=== PATIENT | female | born 1965 | race Hispanic/Latino ===

== ENCOUNTER 2019-02-19 00:20 | Emergency (ER) | payer MEDICAID ==
[2019-02-19] MEDS ORDERED: SODIUM CHLORIDE 0.9% 1000ML 1,000 ML IV ONE (01:00)
[2019-02-19] MEDS ORDERED: ONDANSETRON HCL 4 MG/2 ML VIAL ONE (01:00)
[2019-02-19 01:19] LABS: BASOPHILS % (AUTO) 1.1 % (0.0-5.0); EOSINOPHILS % (AUTO) 3.4 % (0.0-8.0); HEMATOCRIT 43.8 % (36-48); LYMPHOCYTES % (AUTO) 49.5 % (21.0-51.0); MEAN CORPUSCULAR HEMOGLOBIN 34.1 pg (27.0-33.0); MEAN CORPUSCULAR HGB CONC 34.6 g/dL (32.0-36.0); MEAN CORPUSCULAR VOLUME 98.7 fL (79-99); MONOCYTES % (AUTO) 7.5 % (3.0-13.0); NEUTROPHILS % (AUTO) 38.5 % (40.0-77.0); NUCLEATED RED BLOOD CELLS 0.1 % (0.0-0.19); PLATELET COUNT (AUTO) 111 K/uL (130-400); RED BLOOD CELL COUNT(AUTO) 4.44 MIL/uL (4.00-5.50); RED CELL DISTRIBUTION WIDTH 13.6 % (11.0-15.5); WHITE BLOOD COUNT (AUTO) 5.7 K/uL (4.8-10.8)
[2019-02-19 01:29] LABS: POTASSIUM 4.1 mmol/L (3.5-5.1)
[2019-02-19 01:33] LABS: ALBUMIN 3.2 g/dL (3.5-5.0); BILIRUBIN,DIRECT 0.2 mg/dL (0.0-0.3); BILIRUBIN,TOTAL 0.9 mg/dL (0.2-1.0); CREATININE 0.6 mg/dL (0.5-1.5); TOTAL PROTEIN, SERUM 8.3 g/dL (6.0-8.3)
[2019-02-19 01:44] LABS: PLATELET MORPHOLOGY COMMENT LARGE PLTS PRESENT
[2019-02-19 02:11] LABS: APPEARANCE,URINE Clear (CLEAR); BILIRUBIN,URINE Negative (NEGATIVE); COLOR,URINE Yellow (YELLOW); GLUCOSE, URINE (UA) Negative (NEGATIVE); KETONES,URINE Negative (NEGATIVE); LEUKOCYTE ESTERASE ,URINE Moderate (NEGATIVE); NITRATE,URINE Negative (NEGATIVE); OCCULT BLOOD,URINE Negative (NEGATIVE); PH,URINE >=9.0 (5.0-8.0); PROTEIN,URINE Negative (NEGATIVE)
[2019-02-19 02:36] LABS: BACTERIA,URINE Moderate /HPF (None Seen); RBC,URINE 0-1 /HPF (0-1); SQUAMOUS EPITHELIAL CELL,UR 0-2 /HPF (0-2); TRICHOMONAS,URINE Few /LPF (None Seen)
[2019-02-19 02:38] LABS: AMPHET/METH SCREEN,URINE NEGATIVE (NEGATIVE); BARBITURATE SCREEN, URINE NEGATIVE (NEGATIVE); BENZODIAZEPINES SCREEN,URINE NEGATIVE (NEGATIVE); CANNABINOID SCREEN,URINE NEGATIVE (NEGATIVE); COCAINE SCREEN,URINE POSITIVE (NEGATIVE); OPIATE SCREEN,URINE NEGATIVE (NEGATIVE); PHENCYCLIDINE SCREEN,URINE NEGATIVE (NEGATIVE)
[2019-02-19] MEDS ORDERED: CEFTRIAXONE SODIUM 1 GM ONE (03:33)
[2019-02-19] MEDS ORDERED: AZITHROMYCIN 250 MG TABLET PO ONE (03:34)
== END 2019-02-19 04:03 | disposition home or self-care (01) ==
LOC: EDH 00:20
DX: K29.00 Acute gastritis without bleeding (principal); F14.10 Cocaine abuse, uncomplicated; K74.60 Unspecified cirrhosis of liver; F31.9 Bipolar disorder, unspecified
CPT/HCPCS: 36415; 80048; 80076; 80305; 81001; 83690; 85025; 93005; 96374; 96375; 99285; J0696; J2405; J7030

== ENCOUNTER 2020-04-09 11:35 | Emergency (ER) | payer MEDICAID ==
[2020-04-09] MEDS ORDERED: KETOROLAC TROMETHAMINE 30MG/ML ONE (12:14)
== END 2020-04-09 13:08 | disposition home or self-care (01) ==
LOC: EDH 11:35
DX: S82.65XA Nondisplaced fracture of lateral malleolus of left fibula, initial encounter for closed fracture (principal); F32.9 Major depressive disorder, single episode, unspecified; Z98.890 Other specified postprocedural states; Z72.0 Tobacco use; W19.XXXA Unspecified fall, initial encounter; Y93.89 Activity, other specified; Y92.89 Other specified places as the place of occurrence of the external cause; Y99.8 Other external cause status
CPT/HCPCS: 73610; 73630; 96372; 99284; J1885

== ENCOUNTER 2020-09-13 12:09 | Observation (INO) | payer MEDICAID ==
[~2020-09-13] VITALS: Ht 160 cm; Wt 85.6 kg
[2020-09-13 12:42] LABS: BASOPHILS % (AUTO) 0.7 % (0.0-5.0); EOSINOPHILS % (AUTO) 4.3 % (0.0-8.0); HEMATOCRIT 32.3 % (36-48); LYMPHOCYTES % (AUTO) 25.7 % (21.0-51.0); MEAN CORPUSCULAR HEMOGLOBIN 31.2 pg (27.0-33.0); MEAN CORPUSCULAR VOLUME 89.2 fL (79-99); MONOCYTES % (AUTO) 8.1 % (3.0-13.0); NEUTROPHILS % (AUTO) 60.7 % (40.0-77.0); PLATELET COUNT (AUTO) 170 K/uL (130-400); RED BLOOD CELL COUNT(AUTO) 3.62 MIL/uL (4.00-5.50); RED CELL DISTRIBUTION WIDTH 13.7 % (11.0-15.5); WHITE BLOOD COUNT (AUTO) 6.1 K/uL (4.8-10.8)
[2020-09-13] MEDS ORDERED: CYCLOBENZAPRINE HCL 10 MG TABLET ONE (12:43)
[2020-09-13] MEDS ORDERED: KETOROLAC TROMETHAMINE 30MG/ML ONE (12:43)
[2020-09-13 12:47] LABS: APPEARANCE,URINE Clear (CLEAR); BILIRUBIN,URINE Negative (NEGATIVE); COLOR,URINE Yellow (YELLOW); GLUCOSE, URINE (UA) Negative (NEGATIVE); KETONES,URINE Negative (NEGATIVE); LEUKOCYTE ESTERASE ,URINE Trace (NEGATIVE); NITRATE,URINE Negative (NEGATIVE); OCCULT BLOOD,URINE Negative (NEGATIVE); PH,URINE 6.5 (5.0-8.0); PROTEIN,URINE Negative (NEGATIVE)
[2020-09-13 13:04] LABS: CREATININE 0.6 mg/dL (0.5-1.5); POTASSIUM 3.6 mmol/L (3.5-5.1)
[2020-09-13 13:09] LABS: ALBUMIN 3.2 g/dL (3.5-5.0); TOTAL PROTEIN, SERUM 8.3 g/dL (6.0-8.3)
[2020-09-13 13:13] LABS: BACTERIA,URINE None Seen /HPF (None Seen); RBC,URINE None Seen /HPF (0-1); SQUAMOUS EPITHELIAL CELL,UR 0-2 /HPF (0-2); WBC,URINE 0-1 /HPF (0-1)
[2020-09-13] MEDS ORDERED: POTASSIUM CHLORIDE 20MEQ/100ML 100 ML IV PRN ×2 (15:45)
[2020-09-13] MEDS ORDERED: MAGNESIUM 2GM PREMIX 50ML 50 ML IV PRN (15:45)
[2020-09-13] MEDS: CEFOXITIN SODIUM 1 GM VIAL IVP SCH ×2 (15:45→23:18)
[2020-09-13] MEDS ORDERED: POTASSIUM CHLORIDE 20 MEQ ERTAB PO PRN (15:45)
[2020-09-13] MEDS ORDERED: POTASSIUM CHLORIDE 10% ELIXIR 20 MEQ/15 ML UDCUP PO PRN (15:45)
[2020-09-13] MEDS ORDERED: VANCOMYCIN PROTOCOL PER PHARMACY IV SCH (15:45)
[2020-09-13] MEDS ORDERED: LIDOCAINE HCL-MPF 1% 2ML VIAL IV PRN ×2 (15:45)
[2020-09-13] MEDS ORDERED: ONDANSETRON HCL 4 MG/2 ML VIAL IVP PRN (15:45)
[2020-09-13] MEDS: SODIUM CHLORIDE 0.9% 1000ML 1,000 ML IV SCH (15:45)
[2020-09-13] MEDS ORDERED: ACETAMINOPHEN 325 MG TAB PO PRN (15:45)
[2020-09-13] MEDS ORDERED: COMPOUND IV REFRIGERATED 1 EACH IVSOLN MISC PRN (16:15)
[2020-09-13] MEDS ORDERED: CEFOXITIN SODIUM 2 GM VIAL ONE (16:41)
[2020-09-13] MEDS ORDERED: SODIUM CHLORIDE 0.9% 1000ML 1,000 ML IV ONE (16:41)
[2020-09-13] MEDS ORDERED: VANCOMYCIN 1GM+NS 250ML 250 ML IV ONE (16:41)
[2020-09-13 16:55] LABS: AMPHET/METH SCREEN,URINE NEGATIVE (NEGATIVE); BARBITURATE SCREEN, URINE NEGATIVE (NEGATIVE); BENZODIAZEPINES SCREEN,URINE NEGATIVE (NEGATIVE); CANNABINOID SCREEN,URINE NEGATIVE (NEGATIVE); COCAINE SCREEN,URINE POSITIVE (NEGATIVE); OPIATE SCREEN,URINE NEGATIVE (NEGATIVE); PHENCYCLIDINE SCREEN,URINE NEGATIVE (NEGATIVE)
[2020-09-13] MEDS: VANCOMYCIN 1.25 GM in SODIUM CHLORIDE 0.9% 250 ML IV SCH (18:00)
[2020-09-13 22:50] VITALS: BP 96/56
[2020-09-13] MEDS ORDERED: ACET1TAB25 PO (23:28)
[2020-09-13] MEDS ORDERED: CLON0.1T PO (23:28)
[2020-09-13] MEDS ORDERED: TIOT18CA3 IH (23:28)
[2020-09-13] MEDS ORDERED: GABA-529 PO (23:28)
[2020-09-13] MEDS ORDERED: BENZ-70 PO (23:28)
[2020-09-13] MEDS ORDERED: BUDE10.2 IH (23:28)
[2020-09-13] MEDS ORDERED: ONDA4TAB10 PO (23:28)
[2020-09-13] MEDS ORDERED: HYDR-4153 PO (23:28)
[2020-09-14] MEDS: SODIUM CHLORIDE 0.9% 1000ML 1,000 ML IV SCH ×2 (03:51→18:25)
[2020-09-14 04:22] VITALS: BP 113/68
[2020-09-14 04:56] LABS: HEMATOCRIT 28.4 % (36-48); MEAN CORPUSCULAR HGB CONC 35.6 g/dL (32.0-36.0); MEAN CORPUSCULAR VOLUME 89.9 fL (79-99); RED BLOOD CELL COUNT(AUTO) 3.16 MIL/uL (4.00-5.50); RED CELL DISTRIBUTION WIDTH 13.9 % (11.0-15.5); WHITE BLOOD COUNT (AUTO) 4.7 K/uL (4.8-10.8)
[2020-09-14 05:07] LABS: CREATININE 0.7 mg/dL (0.5-1.5); MAGNESIUM 2.3 mg/dL (1.80-2.40)
[2020-09-14] MEDS: CEFOXITIN SODIUM 1 GM VIAL IVP SCH (07:51)
[2020-09-14 08:00] VITALS: BP 101/70
[2020-09-14] MEDS ORDERED: GADOTERATE MEGLUMINE 10 MMOL/20 ML VIAL IV ONE (08:04)
[2020-09-14] MEDS ORDERED: ENOXAPARIN SODIUM 40 MG/0.4 ML SYRINGE SQ SCH (09:00)
[2020-09-14] MEDS ORDERED: LORAZEPAM 2 MG/ML 1 ML VIAL IVP SCH (11:00)
[2020-09-14] MEDS ORDERED: KETOROLAC TROMETHAMINE 30MG/ML ONE (11:13)
[2020-09-14] MEDS ORDERED: KETOROLAC TROMETHAMINE 30MG/ML IV PRN (11:45)
[2020-09-14 12:14] VITALS: BP 121/79
[2020-09-14] MEDS: VANCOMYCIN 1.25 GM in SODIUM CHLORIDE 0.9% 250 ML IV SCH (12:49)
[2020-09-14 16:57] VITALS: BP 118/80
== END 2020-09-14 20:12 | disposition home or self-care (01) ==
LOC: EDH 12:09 → EDHIP 12:10 → 3DH 23:09
PROVIDERS: ADMIT Internal Medicine Pulmonary Disease; ATTEND Internal Medicine Pulmonary Disease
DX: S89.301A Unspecified physeal fracture of lower end of right fibula, initial encounter for closed fracture (principal); M79.672 Pain in left foot; E87.1 Hypo-osmolality and hyponatremia; M46.44 Discitis, unspecified, thoracic region; F31.9 Bipolar disorder, unspecified; K74.60 Unspecified cirrhosis of liver; R79.89 Other specified abnormal findings of blood chemistry; K21.9 Gastro-esophageal reflux disease without esophagitis; G40.909 Epilepsy, unspecified, not intractable, without status epilepticus; E66.9 Obesity, unspecified; R29.6 Repeated falls; I69.352 Hemiplegia and hemiparesis following cerebral infarction affecting left dominant side; F14.10 Cocaine abuse, uncomplicated; Z87.891 Personal history of nicotine dependence; Z91.81 History of falling; Z79.899 Other long term (current) drug therapy; Z91.19 Patient's noncompliance with other medical treatment and regimen; W18.39XA Other fall on same level, initial encounter; Y93.89 Activity, other specified; Y92.009 Unspecified place in unspecified non-institutional (private) residence as the place of occurrence of the external cause; Z68.35 Body mass index [BMI] 35.0-35.9, adult
CPT/HCPCS: 36415 ×2; 70450; 71045; 72125; 72128; 72131; 73610 ×2; 73630 ×2; 76700; 80048; 80053; 80305; 81001; 82140; 83735 ×2; 84145; 84484; 85025; 85027; 85651; 86140; 87040 ×2; 87077; 87088; 87186; 93005; 96361; 96365; 96366; 96367; 96372; 96375 ×2; 96376; 97039 ×2; 97161; 99285; G0378 ×27; G8979; G8980; G8981; G8982; G8983; J0694 ×3; J1650; J1885 ×2; J2060; J3370 ×2; J3475; J7030 ×2; J7050

== ENCOUNTER 2021-08-25 07:30 | Emergency (ER) | payer MEDICAID ==
[~2021-08-25] VITALS: Ht 160 cm; Wt 81.6 kg
[~2021-08-25 07:30] MED LIST: BUDE10.2 IH; CLON0.1T PO; GABA-529 PO; HYDR-4153 PO; ONDA4TAB10 PO; TIOT18CA3 IH
[2021-08-25 07:52] LABS: BASOPHILS % (AUTO) 0.3 % (0.0-5.0); EOSINOPHILS % (AUTO) 0.4 % (0.0-8.0); HEMATOCRIT 34.3 % (36-48); LYMPHOCYTES % (AUTO) 8.4 % (21.0-51.0); MEAN CORPUSCULAR HEMOGLOBIN 32.2 pg (27.0-33.0); MEAN CORPUSCULAR HGB CONC 33.2 g/dL (32.0-36.0); MEAN CORPUSCULAR VOLUME 96.9 fL (79-99); MONOCYTES % (AUTO) 8.3 % (3.0-13.0); NEUTROPHILS % (AUTO) 82.1 % (40.0-77.0); PLATELET COUNT (AUTO) 96 K/uL (130-400); RED BLOOD CELL COUNT(AUTO) 3.54 MIL/uL (4.00-5.50); RED CELL DISTRIBUTION WIDTH 16.8 % (11.0-15.5); WHITE BLOOD COUNT (AUTO) 11.5 K/uL (4.8-10.8)
[2021-08-25] MEDS ORDERED: 0.9%NACL 1000ML 1,000 ML IV ONE ×2 (07:54→08:00)
[2021-08-25] MEDS ORDERED: IPRATROPIUM/ALBUTEROL SULFATE 3 ML SOLUTION IH ONE (08:00)
[2021-08-25 08:17] LABS: APPEARANCE,URINE Clear (CLEAR); BILIRUBIN,URINE Negative (NEGATIVE); COLOR,URINE Yellow (YELLOW); GLUCOSE, URINE (UA) Negative (NEGATIVE); KETONES,URINE Negative (NEGATIVE); LEUKOCYTE ESTERASE ,URINE Large (NEGATIVE); NITRATE,URINE Positive (NEGATIVE); OCCULT BLOOD,URINE Small (NEGATIVE); PROTEIN,URINE Negative (NEGATIVE)
[2021-08-25 08:18] LABS: BILIRUBIN,TOTAL 1.9 mg/dL (0.2-1.0); CREATININE 0.6 mg/dL (0.5-1.5); POTASSIUM 3.6 mmol/L (3.5-5.1); TOTAL PROTEIN, SERUM 8.4 g/dL (6.0-8.3)
[2021-08-25 08:23] LABS: BACTERIA,URINE Many /HPF (None Seen); RBC,URINE 0-1 /HPF (0-1); SQUAMOUS EPITHELIAL CELL,UR Rare /HPF (0-2)
[2021-08-25 10:00] VITALS: BP 148/74
[2021-08-25] MEDS ORDERED: DOXYCYCLINE HYCLATE 100 MG TABLET PO SCH (10:00)
[2021-08-25 10:12] LABS: ABG BASE EXCESS -1.4 mmol/L (-2.0-3.0); ABG HCO3 22.3 mmol/L (21.0-28.0); ABG PCO2 34 mmHg (32-45)
[2021-08-25 11:31] LABS: AMPHET/METH SCREEN,URINE NEGATIVE (NEGATIVE); BARBITURATE SCREEN, URINE NEGATIVE (NEGATIVE); BENZODIAZEPINES SCREEN,URINE NEGATIVE (NEGATIVE); CANNABINOID SCREEN,URINE NEGATIVE (NEGATIVE); COCAINE SCREEN,URINE POSITIVE (NEGATIVE); OPIATE SCREEN,URINE NEGATIVE (NEGATIVE); PHENCYCLIDINE SCREEN,URINE NEGATIVE (NEGATIVE)
[2021-08-25] MEDS ORDERED: DOXY-336 PO (12:07)
[2021-08-25] MEDS ORDERED: ALBUHFA IH (12:07)
[2021-08-25] MEDS ORDERED: D-ME118S47 PO (12:07)
== END 2021-08-25 12:58 | disposition home or self-care (01) ==
LOC: EDH 07:30
DX: J20.9 Acute bronchitis, unspecified (principal); F14.10 Cocaine abuse, uncomplicated; F10.10 Alcohol abuse, uncomplicated; J45.909 Unspecified asthma, uncomplicated; F20.9 Schizophrenia, unspecified; F31.9 Bipolar disorder, unspecified; F17.210 Nicotine dependence, cigarettes, uncomplicated; Z79.899 Other long term (current) drug therapy; Y90.9 Presence of alcohol in blood, level not specified
CPT/HCPCS: 36415; 36600; 71045; 80053; 80305; 81001; 82140; 82435; 82803; 82947; 83605 ×2; 84132; 84295; 84484; 85018; 85025; 86850; 86900; 86901; 87040 ×2; 87077 ×2; 87088; 87186 ×2; 87635; 87804 ×2; 87880; 93005; 94640; 96360; 96361; 99285; C9803; J7030

== ENCOUNTER 2022-12-14 14:10 | Observation (INO) | payer MEDICAID ==
[~2022-12-14] VITALS: Ht 147.3 cm; Wt 89.8 kg
[~2022-12-14 14:10] MED LIST changes: +ALBUHFA IH; +D-ME118S47 PO; +DOXY-469 PO
[2022-12-14] MEDS ORDERED: ALBUMIN (HUMAN) 25% 50 ML IV SCH (15:00)
[2022-12-14] MEDS ORDERED: ALBUTEROL 0.083% 2.5 MG/3 ML INH IH ONE (15:00)
[2022-12-14] MEDS ORDERED: FUROSEMIDE 40MG VIAL IV ONE (15:00)
[2022-12-14 15:30] VITALS: PULSE 92; RESP 36
[2022-12-14 15:38] LABS: APPEARANCE,URINE CLOUDY (CLEAR); BILIRUBIN,URINE NEGATIVE (NEGATIVE); COLOR,URINE YELLOW (YELLOW); GLUCOSE, URINE (UA) NEGATIVE (NEGATIVE); KETONES,URINE NEGATIVE (NEGATIVE); LEUKOCYTE ESTERASE ,URINE 500 Leu/uL (NEGATIVE); NITRATE,URINE NEGATIVE (NEGATIVE); OCCULT BLOOD,URINE LARGE (NEGATIVE); PROTEIN,URINE NEGATIVE (NEGATIVE)
[2022-12-14 15:48] LABS: EOSINOPHILS % (AUTO) 4.8 % (0.0-8.0); LYMPHOCYTES % (AUTO) 32.7 % (21.0-51.0); MEAN CORPUSCULAR HEMOGLOBIN 26.4 pg (27.0-33.0); MEAN CORPUSCULAR HGB CONC 31.6 g/dL (32.0-36.0); MEAN CORPUSCULAR VOLUME 83.6 fL (79-99); NEUTROPHILS % (AUTO) 49.1 % (40.0-77.0); PLATELET COUNT (AUTO) 160 K/uL (130-400); RED BLOOD CELL COUNT(AUTO) 2.99 MIL/uL (4.00-5.50); RED CELL DISTRIBUTION WIDTH 21.3 % (11.0-15.5); WHITE BLOOD COUNT (AUTO) 6.7 K/uL (4.8-10.8)
[2022-12-14 15:50] LABS: BACTERIA,URINE MANY /HPF (None Seen); MUCUS,URINE RARE LPF (None Seen); RBC,URINE 26-50 /HPF (0-1); SQUAMOUS EPITHELIAL CELL,UR MANY /HPF (0-2); WBC,URINE TNTC /HPF (0-1)
[2022-12-14 16:07] LABS: CARBON DIOXIDE 26 mmol/L (21-32); CHLORIDE 94 mmol/L (101-111); CREATININE 0.8 mg/dL (0.5-1.5); GLOMERULAR FILTR. RATE CALC 86 mL/min (>90); GLUCOSE,RANDOM 94 mg/dL (70-105); POTASSIUM 4.2 mmol/L (3.5-5.1); SODIUM SERUM 126 mmol/L (136-145); UREA NITROGEN, BLOOD 2 mg/dL (7-18)
[2022-12-14 16:16] LABS: ALANINE AMINOTRANSFERASE 17 U/L (12-78); ALBUMIN 2.1 g/dL (3.5-5.0); AMMONIA 77 umol/L (11-32); ASPARTATE AMINOTRANSFERASE 45 U/L (10-37); CREATINE KINASE, TOTAL 130 U/L (21-232); TOTAL PROTEIN, SERUM 7.8 g/dL (6.0-8.3)
[2022-12-14 16:17] LABS: LIPASE < 50 U/L (114-286)
[2022-12-14] MEDS ORDERED: ALBUTEROL 0.083% 2.5 MG/3 ML INH IH PRN (19:00)
[2022-12-14] MEDS ORDERED: CLONIDINE HCL 0.1 MG TABLET PO PRN (19:00)
[2022-12-14] MEDS ORDERED: HYDRALAZINE 20MG/ML VIAL IV PRN (19:00)
[2022-12-14] MEDS ORDERED: ACETAMINOPHEN 325 MG TAB PO PRN (19:00)
[2022-12-14] MEDS: FUROSEMIDE 40MG VIAL IV SCH (19:30)
[2022-12-14] MEDS: CEFTRIAXONE 2GM VIAL IVPB SCH (19:38)
[2022-12-14] MEDS: INSULIN HUMULIN R 100 UNIT/ML 3ML SQ SCH (21:00)
[2022-12-14] MEDS: LACTULOSE 20 GM/30 ML UDCUP PO SCH (21:11)
[2022-12-14] MEDS: FAMOTIDINE 20MG TAB PO SCH (21:11)
[2022-12-14 21:36] LABS: CREATININE 0.8 mg/dL (0.5-1.5); POTASSIUM 3.7 mmol/L (3.5-5.1)
[2022-12-14 21:45] VITALS: BP 158/76; PULSE 91; RESP 18
[2022-12-15] VITALS (11 sets, daily range): BP systolic 111–146; BP diastolic 55–82; PULSE 85–103; RESP 18–22; O2SAT 95–96
[2022-12-15] MEDS: INSULIN HUMULIN R 100 UNIT/ML 3ML SQ SCH ×4 (06:33→20:18)
[2022-12-15 06:48] LABS: HEMATOCRIT 21.9 % (36-48); MEAN CORPUSCULAR HEMOGLOBIN 26.1 pg (27.0-33.0); MEAN CORPUSCULAR HGB CONC 31.5 g/dL (32.0-36.0); RED BLOOD CELL COUNT(AUTO) 2.64 MIL/uL (4.00-5.50); RED CELL DISTRIBUTION WIDTH 21.9 % (11.0-15.5)
[2022-12-15 07:11] LABS: CREATININE 0.7 mg/dL (0.5-1.5); MAGNESIUM 1.7 mg/dL (1.80-2.40); PHOSPHORUS 4.3 mg/dL (2.5-4.9); POTASSIUM 3.9 mmol/L (3.5-5.1); THYROID STIMULATING HORMONE 1.87 uIU/mL (0.36-3.74)
[2022-12-15 08:10] LABS: HEMATOCRIT 23.2 % (36-48); MEAN CORPUSCULAR HEMOGLOBIN 26.1 pg (27.0-33.0); MEAN CORPUSCULAR HGB CONC 30.6 g/dL (32.0-36.0); MEAN CORPUSCULAR VOLUME 85.3 fL (79-99); PLATELET COUNT (AUTO) 153 K/uL (130-400); RED BLOOD CELL COUNT(AUTO) 2.72 MIL/uL (4.00-5.50); RED CELL DISTRIBUTION WIDTH 21.6 % (11.0-15.5); WHITE BLOOD COUNT (AUTO) 6.2 K/uL (4.8-10.8)
[2022-12-15 08:21] LABS: CREATININE 0.7 mg/dL (0.5-1.5); POTASSIUM 3.9 mmol/L (3.5-5.1)
[2022-12-15 08:23] LABS: INR 1.34 (0.85-1.15); PROTHROMBIN TIME 15.2 SEC (9.6-11.6)
[2022-12-15 08:56] LABS: EOSINOPHILS % (MANUAL) 1 % (1-6); LYMPHOCYTES % (MANUAL) 14 % (22-44); MAN.DIFF COMMENT-IMPRESSION MANUAL DIFFERENTIAL; MONOCYTES % (MANUAL) 6 % (2-9); PLATELET MORPHOLOGY COMMENT ADEQUATE; SEGMENTED NEUTROPHILS % 79 % (40-70)
[2022-12-15] MEDS ORDERED: FUROSEMIDE 40MG VIAL IV SCH (09:00)
[2022-12-15] MEDS: LACTULOSE 20 GM/30 ML UDCUP PO SCH ×3 (09:20→20:17)
[2022-12-15] MEDS: FAMOTIDINE 20MG TAB PO SCH ×2 (09:20→20:17)
[2022-12-15] MEDS: FUROSEMIDE 40MG VIAL IV SCH ×2 (09:21→20:17)
[2022-12-15] MEDS ORDERED: IOHEXOL 350 MG/ML 100ML INFUS..BTL IV ONE (11:22)
[2022-12-15] MEDS: BUDESONIDE 0.5 MG/2 ML INH IH SCH (18:22)
[2022-12-15] MEDS: IPRATROPIUM 0.5 MG/2.5 ML INH IH SCH ×2 (18:22→23:35)
[2022-12-15] MEDS: CEFTRIAXONE 2GM VIAL IVPB SCH (20:17)
[2022-12-15] MEDS: SPIRONOLACTONE 25 MG TAB PO SCH (20:18)
[2022-12-15] MEDS: GABAPENTIN 100 MG CAPSULE PO SCH (20:18)
[2022-12-16] VITALS (15 sets, daily range): BP systolic 104–170; BP diastolic 68–85; PULSE 86–101; RESP 18–20; O2SAT 94–100
[2022-12-16] MEDS: INSULIN HUMULIN R 100 UNIT/ML 3ML SQ SCH ×4 (05:29→20:27)
[2022-12-16 05:36] LABS: EOSINOPHILS % (AUTO) 3.1 % (0.0-8.0); HEMATOCRIT 23.7 % (36-48); MEAN CORPUSCULAR HEMOGLOBIN 26.6 pg (27.0-33.0); MEAN CORPUSCULAR HGB CONC 31.6 g/dL (32.0-36.0); MONOCYTES % (AUTO) 13.8 % (3.0-13.0); NEUTROPHILS % (AUTO) 46.9 % (40.0-77.0); PLATELET COUNT (AUTO) 135 K/uL (130-400); RED BLOOD CELL COUNT(AUTO) 2.82 MIL/uL (4.00-5.50); RED CELL DISTRIBUTION WIDTH 22.1 % (11.0-15.5); WHITE BLOOD COUNT (AUTO) 4.9 K/uL (4.8-10.8)
[2022-12-16 06:07] LABS: B-TYPE NATRIURETIC PEPTIDE 84 pg/mL (0-100)
[2022-12-16] MEDS: IPRATROPIUM 0.5 MG/2.5 ML INH IH SCH ×4 (06:30→23:18)
[2022-12-16] MEDS: BUDESONIDE 0.5 MG/2 ML INH IH SCH ×2 (06:30→19:50)
[2022-12-16] MEDS: FUROSEMIDE 40MG VIAL IV SCH ×2 (06:44→20:26)
[2022-12-16 06:47] LABS: CREATININE 0.8 mg/dL (0.5-1.5); MAGNESIUM 1.7 mg/dL (1.80-2.40); POTASSIUM 3.5 mmol/L (3.5-5.1); TOTAL PROTEIN, SERUM 7.1 g/dL (6.0-8.3)
[2022-12-16] MEDS ORDERED: MAGNESIUM 2GM PREMIX 50ML 50 ML IV PRN (07:00)
[2022-12-16] MEDS ORDERED: POTASSIUM CHLORIDE 20MEQ/100ML 100 ML IV PRN (07:00)
[2022-12-16] MEDS ORDERED: POTASSIUM CHLORIDE 10% ELIXIR 20 MEQ/15 ML UDCUP PO PRN (07:00)
[2022-12-16] MEDS: KCL 20 MEQ ERTAB PO PRN ×2 (07:32→09:32)
[2022-12-16] MEDS: PREDNISONE 20 MG TABLET PO SCH (09:31)
[2022-12-16] MEDS: GABAPENTIN 100 MG CAPSULE PO SCH ×2 (09:32→20:25)
[2022-12-16] MEDS: FAMOTIDINE 20MG TAB PO SCH ×2 (09:32→20:25)
[2022-12-16] MEDS: SPIRONOLACTONE 25 MG TAB PO SCH ×2 (09:32→20:25)
[2022-12-16] MEDS: LACTULOSE 20 GM/30 ML UDCUP PO SCH ×3 (09:33→20:25)
[2022-12-16] MEDS: MEROPENEM 2 GM in 0.9%NACL 100ML 100 ML IV SCH ×2 (14:47→20:00)
[2022-12-16] MEDS ORDERED: COMPOUND IV MISC 1 EACH IVSOLN MISC PRN (20:30)
[2022-12-16] MEDS ORDERED: COMPOUND IV REFRIGERATED 1 EACH IVSOLN MISC PRN (20:30)
[2022-12-17] VITALS (7 sets, daily range): BP systolic 121–142; BP diastolic 64–81; PULSE 89–100; RESP 18–24; O2SAT 95–100
[2022-12-17] MEDS: MEROPENEM 2 GM in 0.9%NACL 100ML 100 ML IV SCH (04:20)
[2022-12-17 06:13] LABS: HEMATOCRIT 23.7 % (36-48); MEAN CORPUSCULAR HEMOGLOBIN 26.3 pg (27.0-33.0); MEAN CORPUSCULAR HGB CONC 31.2 g/dL (32.0-36.0); MEAN CORPUSCULAR VOLUME 84.3 fL (79-99); RED BLOOD CELL COUNT(AUTO) 2.81 MIL/uL (4.00-5.50); RED CELL DISTRIBUTION WIDTH 22.3 % (11.0-15.5); WHITE BLOOD COUNT (AUTO) 6.5 K/uL (4.8-10.8)
[2022-12-17] MEDS: IPRATROPIUM 0.5 MG/2.5 ML INH IH SCH ×2 (06:19→11:12)
[2022-12-17] MEDS: BUDESONIDE 0.5 MG/2 ML INH IH SCH (06:19)
[2022-12-17 06:44] LABS: CREATININE 0.8 mg/dL (0.5-1.5); MAGNESIUM 1.9 mg/dL (1.80-2.40); PHOSPHORUS 3.3 mg/dL (2.5-4.9); POTASSIUM 3.7 mmol/L (3.5-5.1); TOTAL PROTEIN, SERUM 7.3 g/dL (6.0-8.3)
[2022-12-17] MEDS: INSULIN HUMULIN R 100 UNIT/ML 3ML SQ SCH (07:30)
[2022-12-17] MEDS: LACTULOSE 20 GM/30 ML UDCUP PO SCH (10:39)
[2022-12-17] MEDS: SPIRONOLACTONE 25 MG TAB PO SCH (10:39)
[2022-12-17] MEDS: GABAPENTIN 100 MG CAPSULE PO SCH (10:39)
[2022-12-17] MEDS: FAMOTIDINE 20MG TAB PO SCH (10:40)
[2022-12-17] MEDS: PREDNISONE 20 MG TABLET PO SCH (10:40)
[2022-12-17] MEDS: FUROSEMIDE 40MG VIAL IV SCH (10:41)
[2022-12-17] MEDS ORDERED: FURO40TA7 PO (12:49)
[2022-12-17] MEDS ORDERED: SPIR25TA PO (12:49)
[2022-12-17] MEDS ORDERED: PRED20TA3 PO (12:49)
[2022-12-17] MEDS ORDERED: LACT10SO9 PO (12:49)
[2022-12-17] MEDS ORDERED: SULF1TAB42 PO (12:49)
== END 2022-12-17 14:55 | disposition home or self-care (01) ==
LOC: EDH 14:10 → EDHIP 14:11 → UNDOADMIN 18:54 → EDHIP 18:54 → 4CH 21:32
PROVIDERS: ADMIT Internal Medicine; ATTEND Internal Medicine
DX: J96.01 Acute respiratory failure with hypoxia (principal); J44.1 Chronic obstructive pulmonary disease with (acute) exacerbation; K74.60 Unspecified cirrhosis of liver; K76.82 Hepatic encephalopathy; D50.9 Iron deficiency anemia, unspecified; E87.70 Fluid overload, unspecified; N30.00 Acute cystitis without hematuria; B96.20 Unspecified Escherichia coli [E. coli] as the cause of diseases classified elsewhere; E87.1 Hypo-osmolality and hyponatremia; I51.7 Cardiomegaly; D63.8 Anemia in other chronic diseases classified elsewhere; F20.9 Schizophrenia, unspecified; F31.9 Bipolar disorder, unspecified; R74.01 Elevation of levels of liver transaminase levels; E72.20 Disorder of urea cycle metabolism, unspecified; G40.909 Epilepsy, unspecified, not intractable, without status epilepticus; F17.210 Nicotine dependence, cigarettes, uncomplicated; R60.1 Generalized edema; Z79.899 Other long term (current) drug therapy; Z98.890 Other specified postprocedural states
CPT/HCPCS: 96365; 96366 ×3; 96375; 99285; 82550 ×4; 83874 ×3; 84484 ×4; 80053 ×3; 83880 ×2; 82140 ×4; 83690; 85025 ×3; 87077; 87088; 87186; 81001; 36415 ×4; 71045 ×2; 93005; 94640 ×11; 94664; 96376 ×4; 84443; 83735 ×3; 84100 ×2; 80048 ×2; 85027 ×2; 85378; 85610; 82948 ×9; 71270; 76705; 93970; 96367 ×2; 93306; 84145; 97161; 97116; G0378 ×63; J0696 ×2; P9047; J1940 ×6; Q9967; J3475; J2185 ×3; G8980; G8983

== ENCOUNTER 2022-12-29 16:43 | Inpatient (IN) | payer MEDICAID ==
[~2022-12-29] VITALS: Ht 149.9 cm; Wt 106.7 kg
[~2022-12-29 16:43] MED LIST changes: -D-ME118S47 PO; -DOXY-469 PO; +FURO40TA7 PO; +LACT10SO9 PO; +PRED20TA3 PO; +SPIR25TA PO; +SULF1TAB42 PO
[2022-12-29] MEDS ORDERED: NOREPINEPHRIN 4MG/NS 250ML 250 ML IV ONE (16:49)
[2022-12-29 16:50] VITALS: PULSE 112; O2SAT 100
[2022-12-29 16:56] LABS: ABG BASE EXCESS -18.2 mmol/L (-2.0-3.0); ABG HCO3 12.6 mmol/L (21.0-28.0); ABG OXYGEN SATURATION 99.6 % (95.0-99.0); ABG PCO2 60 mmHg (32-45); ABG PH 6.945 (7.35-7.450); CARBON MONOXIDE 4.8; HHb 0.4; PO2, ARTERIAL BG 386.9 mmHg (83.0-108.0); VENT MODE, BG EMS VENT (ROOM AIR)
[2022-12-29 17:02] LABS: BASOPHILS # (AUTO) 0.04 K/uL (0.00-0.20); BASOPHILS % (AUTO) 0.3 % (0.0-5.0); EOSINOPHILS # (AUTO) 0.09 K/uL (0.00-0.70); EOSINOPHILS % (AUTO) 0.6 % (0.0-8.0); LYMPHOCYTES # (AUTO) 6.1 K/uL (1.0-4.8); LYMPHOCYTES % (AUTO) 39.3 % (21.0-51.0); MEAN CORPUSCULAR HEMOGLOBIN 26.5 pg (27.0-33.0); MEAN CORPUSCULAR HGB CONC 29.9 g/dL (32.0-36.0); MEAN CORPUSCULAR VOLUME 88.6 fL (79-99); MONOCYTES # (AUTO) 0.9 K/uL (0.1-1.0); NEUTROPHILS # (AUTO) 6.5 K/uL (1.8-7.7); NEUTROPHILS % (AUTO) 41.6 % (40.0-77.0); NUCLEATED RED BLOOD CELLS 2.6 % (0.0-0.19); PLATELET COUNT (AUTO) 134 K/uL (130-400); RED BLOOD CELL COUNT(AUTO) 2.19 MIL/uL (4.00-5.50); RED CELL DISTRIBUTION WIDTH 21.6 % (11.0-15.5); WHITE BLOOD COUNT (AUTO) 15.6 K/uL (4.8-10.8)
[2022-12-29 17:04] LABS: HEMATOCRIT 19.4 % (36-48)
[2022-12-29] MEDS ORDERED: SODIUM BICARB 8.4% 50ML SYRING 150 MEQ in DEXTROSE 5%-WATER 850 ML IVP SCH (17:30)
[2022-12-29] MEDS ORDERED: PANTOPRAZOLE 40 MG/VIAL IVP ONE (17:30)
[2022-12-29] MEDS ORDERED: OCTREOTIDE ACETATE 100 MCG/ML AMP IV ONE (17:30)
[2022-12-29 17:32] LABS: CREATININE 1.4 mg/dL (0.5-1.5); POTASSIUM 4.7 mmol/L (3.5-5.1)
[2022-12-29 17:36] LABS: ALBUMIN 1.9 g/dL (3.5-5.0); BILIRUBIN,TOTAL 1.3 mg/dL (0.2-1.0); TOTAL PROTEIN, SERUM 6.2 g/dL (6.0-8.3)
[2022-12-29 17:47] LABS: INR 1.37 (0.85-1.15); PROTHROMBIN TIME 15.6 SEC (9.6-11.6)
[2022-12-29 17:48] LABS: PARTIAL THROMBOPLASTIN TIME 73.5 SEC (26.3-35.5)
[2022-12-29] MEDS ORDERED: SODIUM BICARB 50MEQ 50ML VIAL 150 ML ONE (18:22)
[2022-12-29 18:56] VITALS: PULSE 120; O2SAT 100
[2022-12-29] MEDS ORDERED: PROPOFOL 1000 MG/100 ML 100 ML IV ONE (19:17)
[2022-12-29] MEDS ORDERED: FENTANYL 1000MCG+NS 100ML 100 ML IV ONE (19:17)
[2022-12-29] MEDS ORDERED: ACETAMINOPHEN 650 MG SUPPOSITORY RC PRN (19:30)
[2022-12-29] MEDS ORDERED: ONDANSETRON 4MG INJ IVP PRN (19:30)
[2022-12-29] MEDS ORDERED: HYDROMORPHONE 1 MG INJ IVP PRN (19:30)
[2022-12-29] MEDS: METOCLOPRAMIDE 10 MG/2 ML VIAL IVP SCH (19:30)
[2022-12-29] MEDS ORDERED: LABETALOL 20MG SYG IV PRN (19:30)
[2022-12-29] MEDS ORDERED: HYDRALAZINE 20MG/ML VIAL IV PRN (19:30)
[2022-12-29] MEDS ORDERED: LACTULOSE 20 GM/30 ML UDCUP PO PRN (19:30)
[2022-12-29] MEDS ORDERED: LACTATED RINGERS 1000ML 1,000 ML IV SCH (19:30)
[2022-12-29] MEDS ORDERED: VANCOMYCIN PROTOCOL PER PHARMACY IV SCH (19:30)
[2022-12-29] MEDS ORDERED: ACETAMINOPHEN 325 MG TAB PO PRN (19:30)
[2022-12-29] MEDS ORDERED: FENTANYL 2500MCG+NS 250ML IV.SOLN IV SCH (20:00)
[2022-12-29] MEDS: PANTOPRAZOLE 80 MG in 0.9%NACL 100ML IVP SCH (20:07)
[2022-12-29] MEDS: CEFEPIME HCL 1 GM VIAL IVPB SCH (20:07)
[2022-12-29] MEDS: FENTANYL 1000MCG+NS 100ML 100 ML IV SCH (20:07)
[2022-12-29] MEDS: PROPOFOL 1000 MG/100 ML 100 ML IV SCH (20:08)
[2022-12-29 20:51] LABS: ABG BASE EXCESS -5.5 mmol/L (-2.0-3.0); ABG HCO3 20.1 mmol/L (21.0-28.0); ABG OXYGEN SATURATION 99.5 % (95.0-99.0); ABG PCO2 40 mmHg (32-45); CARBON MONOXIDE 0.5; DEVICE COMMENT LR; HHb 0.5; PO2, ARTERIAL BG 327.4 mmHg (83.0-108.0)
[2022-12-29 20:55] VITALS: PULSE 115; O2SAT 100
[2022-12-29 21:12] LABS: HEMATOCRIT 28.2 % (36-48)
[2022-12-29] MEDS: VANCOMYCIN 1.25 GM/250 ML BAG 250 ML IV SCH (21:14)
[2022-12-29 22:06] VITALS: PULSE 110; O2SAT 100
[2022-12-30] VITALS (120 sets, daily range): BP systolic 83–160; BP diastolic 35–111; PULSE 89–154; RESP 14–66; O2SAT 95–100
[2022-12-30 00:32] LABS: SARS-CoV-2, RNA, NAAT NEGATIVE SARS CoV-2 (NEGATIVE)
[2022-12-30 00:37] LABS: INFLUENZA TYPE A Negative For Type A (NEGATIVE); INFLUENZA TYPE B Negative For Type B (NEGATIVE)
[2022-12-30 01:29] LABS: HEMATOCRIT 26.9 % (36-48)
[2022-12-30 02:09] LABS: CREATININE 1.6 mg/dL (0.5-1.5); MAGNESIUM 2.1 mg/dL (1.80-2.40); PHOSPHORUS 5.7 mg/dL (2.5-4.9); POTASSIUM 4.9 mmol/L (3.5-5.1); THYROID STIMULATING HORMONE 5.31 uIU/mL (0.36-3.74)
[2022-12-30] MEDS ORDERED: METRONIDAZOLE 500MG/100ML BAG 100 ML ONE (04:38)
[2022-12-30] MEDS: METOCLOPRAMIDE 10 MG/2 ML VIAL IVP SCH ×4 (04:49→17:35)
[2022-12-30] MEDS: METRONIDAZOLE 500MG/100ML BAG 100 ML IVPB SCH ×3 (04:49→20:19)
[2022-12-30 05:38] LABS: ABG BASE EXCESS -1.2 mmol/L (-2.0-3.0); ABG HCO3 23.4 mmol/L (21.0-28.0); ABG PCO2 39 mmHg (32-45); ABG PH 7.401 (7.35-7.450); CARBON MONOXIDE 0.8; PO2, ARTERIAL BG 85.9 mmHg (83.0-108.0); VENT MODE, BG AC (ROOM AIR)
[2022-12-30] MEDS: INSULIN HUMULIN R 100 UNIT/ML 3ML SQ SCH ×5 (05:48→23:26)
[2022-12-30] MEDS ORDERED: LACTATED RINGERS 1000ML 1,000 ML IV SCH (06:00)
[2022-12-30] MEDS: FENTANYL 1000MCG+NS 100ML 100 ML IV SCH ×4 (07:37→23:25)
[2022-12-30] MEDS: PANTOPRAZOLE 80 MG in 0.9%NACL 100ML IVP SCH ×2 (07:38→07:44)
[2022-12-30] MEDS: PROPOFOL 1000 MG/100 ML 100 ML IV SCH ×2 (07:38→21:04)
[2022-12-30 08:25] LABS: BASOPHILS # (AUTO) 0.07 K/uL (0.00-0.20); BASOPHILS % (AUTO) 0.2 % (0.0-5.0); HEMATOCRIT 28.3 % (36-48); IMMATURE GRANULOCYTE ABSOLUTE 0.57 K/uL (0-1); LYMPHOCYTES # (AUTO) 1.8 K/uL (1.0-4.8); LYMPHOCYTES % (AUTO) 5.2 % (21.0-51.0); MEAN CORPUSCULAR HEMOGLOBIN 27.5 pg (27.0-33.0); MEAN CORPUSCULAR HGB CONC 32.9 g/dL (32.0-36.0); MEAN CORPUSCULAR VOLUME 83.7 fL (79-99); MONOCYTES # (AUTO) 2.9 K/uL (0.1-1.0); MONOCYTES % (AUTO) 8.3 % (3.0-13.0); NEUTROPHILS # (AUTO) 29.7 K/uL (1.8-7.7); NEUTROPHILS % (AUTO) 84.7 % (40.0-77.0); NUCLEATED RED BLOOD CELLS 0.5 % (0.0-0.19); PLATELET COUNT (AUTO) 167 K/uL (130-400); RED BLOOD CELL COUNT(AUTO) 3.38 MIL/uL (4.00-5.50); RED CELL DISTRIBUTION WIDTH 19.3 % (11.0-15.5)
[2022-12-30 08:44] LABS: WHITE BLOOD COUNT (AUTO) 35.1 K/uL (4.8-10.8)
[2022-12-30 08:46] LABS: AMPHET/METH SCREEN,URINE NEGATIVE (NEGATIVE); BARBITURATE SCREEN, URINE NEGATIVE (NEGATIVE); BENZODIAZEPINES SCREEN,URINE NEGATIVE (NEGATIVE); CANNABINOID SCREEN,URINE NEGATIVE (NEGATIVE); COCAINE SCREEN,URINE POSITIVE (NEGATIVE); OPIATE SCREEN,URINE NEGATIVE (NEGATIVE); PHENCYCLIDINE SCREEN,URINE NEGATIVE (NEGATIVE)
[2022-12-30 09:00] LABS: APPEARANCE,URINE TURBID (CLEAR); BILIRUBIN,URINE NEGATIVE (NEGATIVE); COLOR,URINE YELLOW (YELLOW); GLUCOSE, URINE (UA) 50 mg/dL (NEGATIVE); KETONES,URINE NEGATIVE (NEGATIVE); LEUKOCYTE ESTERASE ,URINE 25 Leu/uL (NEGATIVE); NITRATE,URINE NEGATIVE (NEGATIVE); OCCULT BLOOD,URINE LARGE (NEGATIVE); PROTEIN,URINE 300 mg/dL (NEGATIVE)
[2022-12-30 09:10] LABS: ADD UA MICROSCOPIC YES
[2022-12-30 09:12] LABS: ALBUMIN 1.9 g/dL (3.5-5.0); BILIRUBIN,TOTAL 4.1 mg/dL (0.2-1.0); MAGNESIUM 2.2 mg/dL (1.80-2.40); TOTAL PROTEIN, SERUM 6.4 g/dL (6.0-8.3)
[2022-12-30 09:19] LABS: LYMPHOCYTES % (MANUAL) 7 % (22-44); SEGMENTED NEUTROPHILS % 93 % (40-70); TOTAL CELLS COUNTED 100
[2022-12-30 09:20] LABS: MAN.DIFF COMMENT-IMPRESSION MANUAL DIFFERENTIAL; PLATELET MORPHOLOGY COMMENT ADEQUATE
[2022-12-30 09:23] LABS: BACTERIA,URINE RARE /HPF (None Seen); MUCUS,URINE RARE LPF (None Seen); RBC,URINE 26-50 /HPF (0-1)
[2022-12-30] MEDS ORDERED: KAYEXALATE 15GM/60ML ONE (09:37)
[2022-12-30] MEDS ORDERED: [UNRECOGNIZED DRUG - OTHER] IV ONE (10:00)
[2022-12-30] MEDS: 0.9%NACL 1000ML 1,000 ML IV SCH ×3 (10:00→23:20)
[2022-12-30] MEDS ORDERED: PHENYLEPHRINE HCL 100 MG in 0.9% NACL 250ML 250 ML IV SCH (10:00)
[2022-12-30] MEDS ORDERED: KAYEXALATE 15GM/60ML PO ONE ×2 (10:00→16:00)
[2022-12-30] MEDS ORDERED: PHENYLEPHRINE HCL 10 MG in 0.9% NACL 250ML 250 ML IV PRN (10:30)
[2022-12-30] MEDS: VANCOMYCIN 1.25 GM/250 ML BAG 250 ML IV SCH (12:31)
[2022-12-30 13:08] LABS: HEMATOCRIT 28.4 % (36-48)
[2022-12-30] MEDS: MIDAZOLAM HCL 50 MG in 0.9%NACL 50ML 50 ML IV SCH (13:15)
[2022-12-30] MEDS ORDERED: CALCIUM GLUC 1GM/10ML VIAL IV STA (15:37)
[2022-12-30] MEDS ORDERED: SODIUM BICARB 50MEQ 50ML VIAL IV STA (15:39)
[2022-12-30] MEDS ORDERED: DEXTROSE 50%-WATER 50 ML DISP.SYRIN IV ONE ×3 (15:44→20:46)
[2022-12-30] MEDS ORDERED: THIAMINE HCL 100 MG/ML 2ML VIAL IVP ONE (15:51)
[2022-12-30] MEDS ORDERED: INSULIN HUMULIN R 100 UNIT/ML 3ML SQ ONE (16:00)
[2022-12-30] MEDS ORDERED: CHLORHEXIDINE GLUCONATE 473 ML MOUTHWASH MM SCH ×2 (16:00→18:00)
[2022-12-30 16:21] LABS: ABG BASE EXCESS -10.2 mmol/L (-2.0-3.0); ABG OXYGEN SATURATION 93.2 % (95.0-99.0); ABG PCO2 55 mmHg (32-45); ABG PH 7.156 (7.35-7.450); DEVICE COMMENT LR; PO2, ARTERIAL BG 84.4 mmHg (83.0-108.0); VENT MODE, BG AC (ROOM AIR)
[2022-12-30] MEDS ORDERED: M.V.I. IV [ADULT] 10 ML, FOLIC ACID 1 MG, THIAMINE HCL 100 MG in 0.9%NACL 1000ML 1,000 ML IV SCH (16:30)
[2022-12-30 16:46] LABS: CREATININE 2.4 mg/dL (0.5-1.5); POTASSIUM 4.4 mmol/L (3.5-5.1)
[2022-12-30] MEDS ORDERED: KAYEXALATE 15GM/60ML RC ONE (17:30)
[2022-12-30 17:35] LABS: ABG BASE EXCESS -10.4 mmol/L (-2.0-3.0); ABG HCO3 16.7 mmol/L (21.0-28.0); ABG OXYGEN SATURATION 94.7 % (95.0-99.0); ABG PCO2 42 mmHg (32-45); ABG PH 7.218 (7.35-7.450); CARBON MONOXIDE 0.3; DEVICE COMMENT LR; HHb 5.3; PO2, ARTERIAL BG 92.3 mmHg (83.0-108.0); VENT MODE, BG AC (ROOM AIR)
[2022-12-30] MEDS ORDERED: SODIUM BICARB 50MEQ 50ML VIAL IV ONE (20:00)
[2022-12-30] MEDS: CEFEPIME HCL 1 GM VIAL IVPB SCH (20:20)
[2022-12-30] MEDS: 0.9%NACL 10ML VIAL IV SCH (20:22)
[2022-12-30] MEDS ORDERED: COMPOUND IV REFRIGERATED 1 EACH IVSOLN MISC PRN (20:30)
[2022-12-30] MEDS: CHLORHEXIDINE GLUCONATE 473 ML MOUTHWASH MM SCH (20:30)
[2022-12-30 20:32] LABS: CREATININE 2.3 mg/dL (0.5-1.5); POTASSIUM 4.3 mmol/L (3.5-5.1)
[2022-12-30] MEDS: DEXTROSE 10%-WATER 1,000 ML IV SCH (21:00)
[2022-12-30] MEDS ORDERED: ARTIFICIAL TEARS 3.5 GM OINTMENT OU SCH (21:00)
[2022-12-30] MEDS: DEXTROSE 10%-WATER 500 ML IV SCH (21:17)
[2022-12-30] MEDS: DEXTROSE 50%-WATER 50 ML DISP.SYRIN IV PRN ×2 (21:55→22:27)
[2022-12-30 23:02] LABS: INR 1.55 (0.85-1.15); PROTHROMBIN TIME 17.5 SEC (9.6-11.6)
[2022-12-30 23:04] LABS: CREATININE 2.4 mg/dL (0.5-1.5); PARTIAL THROMBOPLASTIN TIME 49.7 SEC (26.3-35.5)
[2022-12-31] VITALS (70 sets, daily range): BP systolic 0–121; BP diastolic 0–64; PULSE 0–140; RESP 0–57; O2SAT 97–100
[2022-12-31] MEDS: METOCLOPRAMIDE 10 MG/2 ML VIAL IVP SCH ×3 (00:09→11:05)
[2022-12-31] MEDS: PROPOFOL 1000 MG/100 ML 100 ML IV SCH ×5 (00:26→12:46)
[2022-12-31] MEDS: MIDAZOLAM HCL 50 MG in 0.9%NACL 50ML 50 ML IV SCH ×3 (01:30→07:40)
[2022-12-31 02:25] LABS: ABG HCO3 23.8 mmol/L (21.0-28.0); ABG OXYGEN SATURATION 96.2 % (95.0-99.0); ABG PCO2 67 mmHg (32-45); ABG PH 7.166 (7.35-7.450); CARBON MONOXIDE 0.6; HHb 3.8; VENT MODE, BG PC24 IT 0.8 (ROOM AIR)
[2022-12-31] MEDS: DEXTROSE 10%-WATER 500 ML IV SCH (02:30)
[2022-12-31] MEDS: CHLORHEXIDINE GLUCONATE 473 ML MOUTHWASH MM SCH ×2 (03:00→09:00)
[2022-12-31 03:30] LABS: BASOPHILS % (AUTO) 0.3 % (0.0-5.0); EOSINOPHILS # (AUTO) 0.02 K/uL (0.00-0.70); EOSINOPHILS % (AUTO) 0.1 % (0.0-8.0); HEMATOCRIT 24.1 % (36-48); IMMATURE GRANULOCYTE ABSOLUTE 0.31 K/uL (0-1); LYMPHOCYTES # (AUTO) 2.3 K/uL (1.0-4.8); LYMPHOCYTES % (AUTO) 5.9 % (21.0-51.0); MEAN CORPUSCULAR HEMOGLOBIN 26.8 pg (27.0-33.0); MEAN CORPUSCULAR HGB CONC 31.5 g/dL (32.0-36.0); MEAN CORPUSCULAR VOLUME 84.9 fL (79-99); MONOCYTES # (AUTO) 3.2 K/uL (0.1-1.0); MONOCYTES % (AUTO) 8.2 % (3.0-13.0); NEUTROPHILS % (AUTO) 84.7 % (40.0-77.0); NUCLEATED RED BLOOD CELLS 0.4 % (0.0-0.19); PLATELET COUNT (AUTO) 151 K/uL (130-400); RED BLOOD CELL COUNT(AUTO) 2.84 MIL/uL (4.00-5.50); RED CELL DISTRIBUTION WIDTH 19.3 % (11.0-15.5)
[2022-12-31] MEDS: PANTOPRAZOLE 80 MG in 0.9%NACL 100ML IVP SCH ×2 (03:33→14:44)
[2022-12-31] MEDS: FENTANYL 1000MCG+NS 100ML 100 ML IV SCH ×3 (03:36→12:43)
[2022-12-31 03:39] LABS: WHITE BLOOD COUNT (AUTO) 38.9 K/uL (4.8-10.8)
[2022-12-31 03:54] LABS: ALBUMIN 1.6 g/dL (3.5-5.0); BILIRUBIN,TOTAL 2.8 mg/dL (0.2-1.0); CREATININE 2.4 mg/dL (0.5-1.5); MAGNESIUM 1.8 mg/dL (1.80-2.40); POTASSIUM 4.4 mmol/L (3.5-5.1); TOTAL PROTEIN, SERUM 5.4 g/dL (6.0-8.3)
[2022-12-31] MEDS: INSULIN HUMULIN R 100 UNIT/ML 3ML SQ SCH ×2 (05:19→13:00)
[2022-12-31] MEDS: METRONIDAZOLE 500MG/100ML BAG 100 ML IVPB SCH ×2 (05:39→14:42)
[2022-12-31] MEDS: DEXTROSE 10%-WATER 1,000 ML IV SCH (05:40)
[2022-12-31] MEDS: 0.9%NACL 1000ML 1,000 ML IV SCH (05:41)
[2022-12-31 07:53] LABS: CREATININE 2.4 mg/dL (0.5-1.5); POTASSIUM 4.5 mmol/L (3.5-5.1)
[2022-12-31 08:25] LABS: ABG BASE EXCESS -6.1 mmol/L (-2.0-3.0); ABG HCO3 23.3 mmol/L (21.0-28.0); ABG OXYGEN SATURATION 96.3 % (95.0-99.0); ABG PCO2 63 mmHg (32-45); ABG PH 7.186 (7.35-7.450); DEVICE COMMENT RR ROSIE RN; PO2, ARTERIAL BG 103.8 mmHg (83.0-108.0); VENT MODE, BG AC-PC IP28 (ROOM AIR)
[2022-12-31] MEDS ORDERED: VANCOMYCIN 1G/250ML KIT 250 ML IV SCH (09:00)
[2022-12-31] MEDS ORDERED: THIAMINE HCL 100 MG/ML 2ML VIAL IVP SCH (09:00)
[2022-12-31] MEDS: 0.9%NACL 10ML VIAL IV SCH (09:00)
[2022-12-31] MEDS ORDERED: MIDAZOLAM 50MG-0.9% NS 50ML 50 ML IV SCH (12:00)
[2022-12-31] MEDS ORDERED: MORPHINE 2 MG SYG IVP PRN (17:30)
[2022-12-31] MEDS ORDERED: GLYCOPYRROLATE 1 MG/5 ML SYRINGE IV PRN (17:30)
[2022-12-31] MEDS ORDERED: LORAZEPAM 2 MG/ML 1 ML VIAL IVP PRN (17:30)
== END 2022-12-31 18:35 | DRG 720 ==
LOC: EDH 16:43 → EDHIP 16:44 → 2BH 12-30 00:56
PROVIDERS: ADMIT Internal Medicine; ATTEND Internal Medicine
PROC: 5A1945Z Respiratory Ventilation, 24-96 Consecutive Hours (ICD-10-PCS; principal; 2022-12-29)
PROC: 0BH17EZ Insertion of Endotracheal Airway into Trachea, Via Natural or Artificial Opening (ICD-10-PCS; 2022-12-29)
PROC: 30233N1 Transfusion of Nonautologous Red Blood Cells into Peripheral Vein, Percutaneous Approach (ICD-10-PCS; 2022-12-29)
PROC: 5A12012 Performance of Cardiac Output, Single, Manual (ICD-10-PCS; 2022-12-30)
PROC: 02HV33Z Insertion of Infusion Device into Superior Vena Cava, Percutaneous Approach (ICD-10-PCS; 2022-12-30)
DX: A41.9 Sepsis, unspecified organism (principal); I46.9 Cardiac arrest, cause unspecified; J96.01 Acute respiratory failure with hypoxia; K72.00 Acute and subacute hepatic failure without coma; N17.0 Acute kidney failure with tubular necrosis; I85.11 Secondary esophageal varices with bleeding; G93.41 Metabolic encephalopathy; E43 Unspecified severe protein-calorie malnutrition; D68.9 Coagulation defect, unspecified; Z20.822 Contact with and (suspected) exposure to COVID-19; T40.5X1A Poisoning by cocaine, accidental (unintentional), initial encounter; D62 Acute posthemorrhagic anemia; E87.1 Hypo-osmolality and hyponatremia; R65.21 Severe sepsis with septic shock; E87.20 Acidosis, unspecified; K76.82 Hepatic encephalopathy; E78.5 Hyperlipidemia, unspecified; E87.5 Hyperkalemia; E88.09 Other disorders of plasma-protein metabolism, not elsewhere classified; K74.60 Unspecified cirrhosis of liver; F14.10 Cocaine abuse, uncomplicated; F17.200 Nicotine dependence, unspecified, uncomplicated; G93.9 Disorder of brain, unspecified; I21.4 Non-ST elevation (NSTEMI) myocardial infarction; K92.2 Gastrointestinal hemorrhage, unspecified; M62.82 Rhabdomyolysis; Y92.89 Other specified places as the place of occurrence of the external cause; Z79.899 Other long term (current) drug therapy
CPT/HCPCS: 36415; 36600; 70450; 71045; 71250; 72125; 74176; 80048; 80053; 80202; 80305; 81001; 82140; 82330; 82435; 82550; 82803; 82947; 82948; 83605; 83735; 83874; 83880; 84100; 84132; 84145; 84295; 84443; 84484; 85007; 85014; 85018; 85025; 85378; 85610; 85730; 86850; 86900; 86901; 86922; 87040; 87071; 87088; 87205; 87635; 87804; 93005; 93306; 94002; 94003; C1751; C1894; C9113; G0378; J0610; J0692; J1815; J2354; J2371; J2405; J2704; J2765; J3010; J3370; J3411; J3490; J7030; J7050; J7070; P9016; 3370; A9900